=== PATIENT | female | born 1990 | race Caucasian/White ===

== ENCOUNTER 2017-10-07 22:05 | Emergency (ER) | payer OTHER ==
[~2017-10-07] VITALS: Ht 154.9 cm; Wt 57.8 kg
[2017-10-07 22:07] VITALS: BP 154/81
== END 2017-10-08 00:59 | disposition home or self-care (01) ==
LOC: EME 22:05
PROC: 3E0234Z Introduction of Serum, Toxoid and Vaccine into Muscle, Percutaneous Approach (ICD-10-PCS; principal; 2017-10-07)
DX: S63.502A Unspecified sprain of left wrist, initial encounter (principal); S00.81XA Abrasion of other part of head, initial encounter; W10.1XXA Fall (on)(from) sidewalk curb, initial encounter; Y93.01 Activity, walking, marching and hiking; Y92.480 Sidewalk as the place of occurrence of the external cause; Z23 Encounter for immunization
CPT/HCPCS: 73130; 99281; 99283